=== PATIENT | female | born 1990 | race Caucasian/White ===

== ENCOUNTER → 2021-03-08 13:03 | Outpatient (CLI) | payer BC, SELFPAY ==
--- NOTE | 2021-03-08 13:06 | CT_ITS ---
STUDY: CT FACIAL BONES WITHOUT CONTRAST REASON FOR EXAM: Female, 30 years old. PRE OP. Chronic sinusitis. RADIATION DOSAGE (If Supplied By Facility): CTDIvol = ( 33.06 ) mGy, DLP = ( 875.17 ) mGycm TECHNIQUE: The patient was scanned in a multi detector CT scanner. Sagittal and coronal images were reconstructed. Individualized dose optimization techniques were used for this CT. COMPARISON: None. FINDINGS: Normal soft tissue structures. Normal orbital lucio and orbital contents. Normal nasal bones and anterior nasal spine. Normal facial bones. There is no demonstrated fracture. There is partial opacification of the maxillary sinuses bilaterally. More prominent on the left side. The ostiomeatal complexes are compromised bilaterally due to the mucosal thickening. There is partial opacification of the ethmoid sinuses bilaterally. Partial opacification of the sphenoid sinuses bilaterally. The frontal sinuses are clear. Nasal septal deviation towards the right side of the midline. Hypertrophy of the left inferior turbinate. CT/Sinus/Facial Bone IMPRESSION: ALMEIDA sinusitis. The frontal sinuses clear. Electronically Signed: Gage Mckeon MD at 14:22 EDT , Service support ,
== END ==
PROVIDERS: Referring Provider Otolaryngology Otolaryngic Allergy; Visit Provider Otolaryngology Otolaryngic Allergy
DX: J32.9 Chronic sinusitis, unspecified (principal); J30.1 Allergic rhinitis due to pollen
CPT/HCPCS: 70486